=== PATIENT | male | born 1965 | race Caucasian/White ===

== ENCOUNTER → 2024-05-15 06:31 | Day surgery (SDC) | payer OTHER, SELFPAY | LOC: GI 06:31 | PROVIDERS: ATTENDING PHYSICIAN Internal Medicine Gastroenterology | DX: K64.0 First degree hemorrhoids (principal); K57.30 Diverticulosis of large intestine without perforation or abscess without bleeding; D12.0 Benign neoplasm of cecum; K63.5 Polyp of colon | CPT/HCPCS: 45385; 88305 ==

== ENCOUNTER → 2025-04-24 10:14 | Outpatient (REF) | payer OTHER, SELFPAY | LOC: HWRAD 10:14 | PROVIDERS: ATTENDING PHYSICIAN Family Medicine; FAMILY PHYSICIAN Internal Medicine | DX: R05.3 Chronic cough (principal) | CPT/HCPCS: 71046 ==

== ENCOUNTER → 2025-05-14 06:37 | Outpatient (REF) | payer MEDICARE, SELFPAY | LOC: RAD 06:37 | PROVIDERS: ATTENDING PHYSICIAN Family Medicine; FAMILY PHYSICIAN Internal Medicine | DX: R40.20 Unspecified coma (principal) | CPT/HCPCS: 93880 ==

== ENCOUNTER 2025-05-19 17:16 | Emergency (ER) | payer SELFPAY ==
[2025-05-19 17:19] VITALS: BP 150/88
[2025-05-19 19:06] VITALS: BP 139/88
[2025-05-19 19:07] VITALS: BMI 31.0
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
[2025-05-19 20:28] VITALS: BP 133/77
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
== END 2025-05-19 21:29 | disposition home or self-care (01) ==
LOC: EMR 17:16
PROVIDERS: EMERGENCY PHYSICIAN Emergency Medicine; FAMILY PHYSICIAN Internal Medicine
DX: S09.90XA Unspecified injury of head, initial encounter (principal); S50.812A Abrasion of left forearm, initial encounter; S80.211A Abrasion, right knee, initial encounter; S05.11XA Contusion of eyeball and orbital tissues, right eye, initial encounter; S80.12XA Contusion of left lower leg, initial encounter; S80.11XA Contusion of right lower leg, initial encounter; V47.5XXA Car driver injured in collision with fixed or stationary object in traffic accident, initial encounter; Y92.410 Unspecified street and highway as the place of occurrence of the external cause; I10 Essential (primary) hypertension; E78.00 Pure hypercholesterolemia, unspecified; G35 Multiple sclerosis; Z79.82 Long term (current) use of aspirin
CPT/HCPCS: 99284; 70450; 72125; 73090; 73552

== ENCOUNTER → 2025-08-11 13:26 | Outpatient (REF) | payer MEDICARE, SELFPAY | LOC: RAD 13:26 | PROVIDERS: ATTENDING PHYSICIAN Internal Medicine | DX: R05.3 Chronic cough (principal); M54.9 Dorsalgia, unspecified; G35.D Multiple sclerosis, unspecified | CPT/HCPCS: 71260; Q9967 ==